=== PATIENT | male | born 1995 | race Caucasian/White ===

== ENCOUNTER 2022-01-22 19:56 | Emergency (ER) | payer OTHER ==
[2022-01-22] MEDS ORDERED: Ondansetron 4 MG Tab.DIS PO ONE (21:25)
[2022-01-22] MEDS ORDERED: cefTRIAXone 500 MG, Lidocaine 1% 1 ML IM ONE ×2 (21:25)
[2022-01-22] MEDS ORDERED: Doxycycline Monohydrate 100 MG Cap PO ONE (21:28)
[2022-01-22 22:25] LABS: ANION GAP 10.6 mEq/L (7-13)
[2022-01-22] MEDS ORDERED: Ondansetron 4 MG Tab.DIS ONE (23:46)
[2022-01-22] MEDS ORDERED: Doxycycline Monohydrate 100 MG Cap ONE (23:47)
[2022-01-22] MEDS ORDERED: cefTRIAXone 500 MG Vial ONE (23:47)
[2022-01-22] MEDS ORDERED: Lidocaine 1% 10 ML MDV ONE (23:48)
[2022-01-27 12:46] LABS: C.TRACHOMATIS BY TMA Negative (Negative); N.GONORRHOEAE BY TMA Negative (Negative)
== END 2022-01-23 00:04 | disposition home or self-care (01) ==
LOC: DL.ED 19:56
DX: N45.1 Epididymitis (principal); N20.0 Calculus of kidney
CPT/HCPCS: 74176; 80053; 81001; 85025; 87491; 87563; 87591; 96372; 99284; A9270; J0696